=== PATIENT | female | born 1985 | race Caucasian/White ===

== ENCOUNTER 2018-09-06 18:13 | Emergency (ER) | payer SELFPAY ==
[~2018-09-06] VITALS: Ht 157.5 cm; Wt 76.4 kg
[2018-09-06 18:34] VITALS: BP 212/114; PULSE 63; RESP 18; Ht 157.5 cm; Wt 76.4 kg
[2018-09-07] MEDS ORDERED: HYDR25TA6 PO (16:12)
== END 2018-09-06 21:44 | disposition left against medical advice (07) ==
LOC: E/R 18:13
DX: Z53.21 Procedure and treatment not carried out due to patient leaving prior to being seen by health care provider (principal)

== ENCOUNTER 2018-09-07 15:35 | Emergency (ER) | payer OTHER ==
[~2018-09-07] VITALS: Ht 160 cm; Wt 75.0 kg
[2018-09-07 15:46] VITALS: Ht 160 cm; Wt 75.0 kg
[2018-09-07] MEDS ORDERED: HYDR25TA6 PO (16:12)
[2018-09-07 16:20] VITALS: BP 162/85; PULSE 76; RESP 20
--- NOTE | 2018-09-07 18:51 | ERD ---
ER Documentation Chief Complaint Chief Complaint medication refill HPI Patient is a 32-year-old female with hypertension who presents for blood pressure medicine. She said that she needs a refill of her blood pressure medicine but does not know what blood pressure medicine it was. She said that she knows that it was 50 mg. She denies any symptoms at this time. She does not remember the name of her primary doctor. She said that her primary doctor sent her here to get the blood pressure medication refilled. ROS All systems reviewed and are negative except as per history of present illness. Medications Home Meds Active Scripts Hydrochlorothiazide* (Hydrochlorothiazide*) 25 Mg Tab, 50 MG PO DAILY, #30 TAB Prov:MARTIN GUILLERMO MD 09/07/18 Allergies Allergies: Coded Allergies: No Known Allergy (Unverified , 09/07/18) PMhx/Soc History of Surgery: No Anesthesia Reaction: No Hx Neurological Disorder: No Hx Respiratory Disorders: No Hx Cardiac Disorders: Yes (HTN) Hx Psychiatric Problems: No Hx Miscellaneous Medical Probl: No Hx Alcohol Use: No Hx Substance Use: No Hx Tobacco Use: No Smoking Status: Never smoker FmHx Family History: No diabetes Physical Exam Vitals Vital Signs Date Temp Pulse Resp B/P (MAP) Pulse Ox O2 O2 Flow FiO2 Time Delivery Rate 09/07/18 98.2 76 20 162/85 98 Room Air 16:20 (110) 09/07/18 98.9 55 20 195/95 98 15:46 (128) Physical Exam Const: No acute distress Head: Atraumatic Eyes: Normal Conjunctiva ENT: Normal External Ears, Nose and Mouth. Neck: Full range of motion. No meningismus. Resp: Clear to auscultation bilaterally Cardio: Regular rate and rhythm, no murmurs Abd: Soft, non tender, non distended. Normal bowel sounds Skin: No petechiae or rashes Back: No midline or flank tenderness Ext: No cyanosis, or edema Neur: Awake and alert Psych: Normal Mood and Affect Procedures/MDM Patient is a 32-year-old female with hypertension who presents for hypertension medication refill. I will give her a prescription for hydrochlorothiazide 50mg daily but she will need to follow-up with her primary doctor within 1 week. The patient can return for any worsening symptoms. I do not believe she requires further work-up for admission to the hospital at this time. Departure Diagnosis: Primary Impression: HTN (hypertension) Hypertension type: essential hypertension Qualified Codes: I10 - Essential (primary) hypertension Additional Impression: Encounter for medication refill Condition: Fair Patient Instructions: High Blood Pressure (Hypertension) Additional Instructions: Llame al doctor jeanette loya (Referral Sources) MAANA y johanny tigre MAI PARA DENTRO DE TIGRE SEMANA. Dgale a la secretaria que nosotros le instruimos hacer esta mai.Avise o llame si swanson condicin se empeora antes de la mai. MARTIN GUILLERMO MD Sep 07, 2018 18:51
== END 2018-09-07 16:42 | disposition home or self-care (01) ==
LOC: E/R 15:35 → FTE 16:42
DX: Z76.0 Encounter for issue of repeat prescription (principal); I10 Essential (primary) hypertension
CPT/HCPCS: 99283